=== PATIENT | male | born 1990 | race Caucasian/White ===

== ENCOUNTER 2017-01-21 10:33 | Emergency (ER) | payer BC ==
[~2017-01-21] VITALS: Ht 177.8 cm; Wt 93.6 kg
[2017-01-21 10:42] VITALS: TEMP 99.1
[2017-01-21 11:16] LABS: PH 6 (5-8); SQUAMOUS EPITHELIAL None Seen /hpf; URINE APPEARANCE Clear; URINE BACTERIA None Seen /hpf; URINE BILIRUBIN Negative (NEGATIVE); URINE BLOOD Negative (NEGATIVE); URINE COLOR Colorless; URINE GLUCOSE Negative (NEGATIVE); URINE KETONE Negative (NEGATIVE); URINE RBC 0-2 /hpf; URINE UROBILINOGEN Negative (NEGATIVE); URINE WBC 0-2 /hpf
[2017-01-21 11:22] LABS: BASO % 0.7 % (0.0-2.0); EOS # 0.1 (0.0-0.7); EOS % 2.7 % (0-4.0); GRAN # 2.7 (1.4-6.5); GRAN % 58.7 % (42.2-75.2); HEMATOCRIT 44.9 % (42.0-52.0); HEMOGLOBIN 15.7 g/dl (13.5-18.0); LYMPH # 1.3 (1.2-3.4); LYMPH % 28.8 % (20.0-51.0); MEAN CELL VOLUME 84 fl (80.0-100.0); MEAN CORPUSCULAR HEMOGLOBIN 29 pg (27.0-31.0); MEAN CORPUSCULAR HGB CONC 35 g/dl (33.0-37.0); MEAN PLATELET VOLUME 10.5 fl (7.4-10.4); MONO # 0.4 (0.1-0.6); MONO % 8.9 % (1.7-9.3); PLATELET COUNT 177 K/mm3 (130-400); RED BLOOD COUNT 5.37 M/mm3 (4.20-5.60); REDCELL DISTRIBUTION WIDTH-CV 13.1 % (11.5-14.5); WHITE BLOOD COUNT 4.5 K/mm3 (4.8-10.8)
[2017-01-21 11:31] LABS: ADJUSTED CALCIUM 9.3 mg/dL (8.4-10.2); ALBUMIN 4.1 gm/dL (3.5-5.0); BILIRUBIN,TOTAL 0.8 mg/dL (0.0-1.0); CALCIUM 9.4 mg/dL (8.4-10.2); CREATININE, serum 1.4 mg/dL (0.66-1.25); POTASSIUM 4.2 mmol/L (3.4-5.0)
[2017-01-21 13:27] VITALS: BP 117/57; PULSE 48
== END 2017-01-21 13:28 | disposition home or self-care (01) ==
LOC: COL.ER 10:33
PROVIDERS: Family Medicine
DX: R31.9 Hematuria, unspecified (principal); R79.89 Other specified abnormal findings of blood chemistry; R10.814 Left lower quadrant abdominal tenderness
CPT/HCPCS: J7030

== ENCOUNTER 2017-02-26 05:47 | Day surgery (SDC) | payer BC ==
[~2017-02-26] VITALS: Ht 177.8 cm; Wt 93.5 kg
[2017-02-26 06:07] VITALS: BP 117/73; PULSE 61; TEMP 98
[2017-02-26 08:20] VITALS: BP 104/68; PULSE 55; TEMP 97.3
[2017-02-26 08:35] VITALS: BP 103/60; PULSE 51
[2017-02-26 08:50] VITALS: BP 106/62; PULSE 51
[2017-02-26 09:05] VITALS: BP 109/72; PULSE 47
[2017-02-26 09:30] VITALS: BP 100/56; PULSE 47
[2017-02-26] MEDS ORDERED: PYRIDIUM 100MG100 MG PO (09:54)
[2017-02-26] MEDS ORDERED: NORCO 325 MG-51 TAB PO (09:54)
== END 2017-02-26 10:20 | disposition home or self-care (01) ==
LOC: SDCO 05:47
DX: R31.0 Gross hematuria (principal); R36.1 Hematospermia; N28.9 Disorder of kidney and ureter, unspecified; Z87.891 Personal history of nicotine dependence
CPT/HCPCS: J0690; J1100; J1885; J2405; J2704; J3010; J7120; Q9967